=== PATIENT | female | born 1970 | race Asian ===

== ENCOUNTER 2016-12-01 15:21 | Emergency (ER) | payer OTHER ==
[~2016-12-01] VITALS: Ht 165.1 cm; Wt 111.8 kg
[~2016-12-01 15:21] MED LIST: ATEN25TA21 PO; CYCL10TA35 PO; UNITH DIRECT25 MCG OR; ZANTAC 75 PO; ZEBUTAL 50-325-1 CAP PO
[2016-12-01 18:10] VITALS: BP 127/93; TEMP 98.9
== END 2016-12-01 18:20 | disposition home or self-care (01) ==
LOC: ED 15:21
DX: S16.1XXA Strain of muscle, fascia and tendon at neck level, initial encounter (principal); S09.90XA Unspecified injury of head, initial encounter; S33.5XXA Sprain of ligaments of lumbar spine, initial encounter; S30.0XXA Contusion of lower back and pelvis, initial encounter; W01.0XXA Fall on same level from slipping, tripping and stumbling without subsequent striking against object, initial encounter; Y92.149 Unspecified place in prison as the place of occurrence of the external cause
CPT/HCPCS: 99283

== ENCOUNTER 2017-01-08 12:28 | Outpatient (CLI) | payer OTHER | END 2017-01-08 19:09 | disposition home or self-care (01) | LOC: CT 12:28 | DX: G44.309 Post-traumatic headache, unspecified, not intractable (principal) ==

== ENCOUNTER 2019-01-30 19:35 | Emergency (ER) | payer BC ==
[~2019-01-30] VITALS: Ht 165.1 cm; Wt 107.5 kg
[2019-01-30 21:45] LABS: PLATELET COUNT 233 K/uL (152-353)
[2019-01-30 23:23] VITALS: BP 104/55; TEMP 97.7
== END 2019-01-30 23:15 | disposition home or self-care (01) ==
LOC: ED 19:35
PROVIDERS: Family Medicine
DX: K52.9 Noninfective gastroenteritis and colitis, unspecified (principal); E87.6 Hypokalemia; E86.0 Dehydration
CPT/HCPCS: 36415; 80053; 81000; 85027; 96360; 96375; 99284; J2405; J2550; J3490

== ENCOUNTER 2019-03-21 15:56 | Outpatient (CLI) | payer BC | END 2019-03-21 19:44 | disposition home or self-care (01) | LOC: LAB 15:56 | DX: R53.83 Other fatigue (principal) | CPT/HCPCS: 84436; 84481; 86376 ==

== ENCOUNTER 2019-08-15 11:57 | Outpatient (CLI) | payer BC | END 2019-08-15 20:14 | disposition home or self-care (01) | LOC: RAD 11:57 | DX: M79.671 Pain in right foot (principal) ==

== ENCOUNTER 2019-12-21 17:43 | Emergency (ER) | payer BC ==
[~2019-12-21] VITALS: Ht 165.1 cm; Wt 107.5 kg
[2019-12-21 18:12] LABS: PLATELET COUNT 242 K/uL (152-353)
[2019-12-21 18:40] LABS: POTASSIUM 4.3 mmol/L (3.6-5.2); SODIUM 140 mmol/L (136-145)
[2019-12-21 20:10] VITALS: BP 120/83; TEMP 98
== END 2019-12-21 20:10 | disposition home or self-care (01) ==
LOC: ED 17:43
PROVIDERS: Emergency Medicine
DX: M25.512 Pain in left shoulder (principal); R07.89 Other chest pain
CPT/HCPCS: 80053; 82550; 82553; 84484; 85027; 93005; 99283

== ENCOUNTER 2020-05-11 11:31 | Outpatient (CLI) | payer BC | END 2020-05-11 18:57 | disposition home or self-care (01) | LOC: US 11:31 | DX: I83.892 Varicose veins of left lower extremity with other complications (principal) ==

== ENCOUNTER 2021-04-03 08:43 | Outpatient (CLI) | payer BC | END 2021-04-03 19:18 | disposition home or self-care (01) | LOC: US 08:43 | PROVIDERS: ATTEND Family Medicine | DX: R10.9 Unspecified abdominal pain (principal) ==

== ENCOUNTER 2021-04-05 11:55 | Outpatient (CLI) | payer BC ==
[2021-04-05 14:37] LABS: PLATELET COUNT 264 K/uL (152-353)
== END 2021-04-05 21:53 | disposition home or self-care (01) ==
LOC: LABW 11:55
PROVIDERS: ATTEND Nurse Practitioner Family
DX: R10.31 Right lower quadrant pain (principal)
CPT/HCPCS: 36415; 80053; 85027; Q9963

== ENCOUNTER 2021-04-18 11:52 | Outpatient (CLI) | payer BC | END 2021-04-18 22:26 | disposition home or self-care (01) | LOC: US 11:52 | PROVIDERS: ATTEND Nurse Practitioner Primary Care | DX: R10.31 Right lower quadrant pain (principal); M54.5 Low back pain ==

== ENCOUNTER 2021-09-14 10:31 | Outpatient (CLI) | payer BC | END 2021-09-14 18:59 | disposition home or self-care (01) | LOC: RAD 10:31 | PROVIDERS: ATTEND Family Medicine | DX: M54.51 Vertebrogenic low back pain (principal) ==

== ENCOUNTER 2022-03-19 10:56 | Outpatient (CLI) | payer OTHER | END 2022-03-19 19:17 | disposition home or self-care (01) | LOC: US 10:56 | PROVIDERS: ATTEND Nurse Practitioner Family | DX: E04.1 Nontoxic single thyroid nodule (principal); Z12.31 Encounter for screening mammogram for malignant neoplasm of breast ==

== ENCOUNTER 2022-07-29 19:22 | Emergency (ER) | payer OTHER ==
[~2022-07-29] VITALS: Ht 165.1 cm; Wt 117.9 kg
[2022-07-29 20:18] LABS: PLATELET COUNT 248 K/uL (152-353)
[2022-07-29 20:24] LABS: POTASSIUM 3.6 mmol/L (3.6-5.2)
[2022-07-29] MEDS ORDERED: ATEN25TA21 PO (20:51)
[2022-07-29 21:00] VITALS: BP 139/91; TEMP 98.7
== END 2022-07-29 21:00 | disposition home or self-care (01) ==
LOC: ED 19:22
PROVIDERS: Emergency Medicine
DX: B34.9 Viral infection, unspecified (principal); Z20.822 Contact with and (suspected) exposure to COVID-19; I10 Essential (primary) hypertension
CPT/HCPCS: 36415; 80048; 84484; 85027; 85379; 87635; 93005; 99284; U0003

== ENCOUNTER 2022-10-28 13:31 | Outpatient (CLI) | payer OTHER | END 2022-10-28 21:00 | disposition home or self-care (01) | LOC: RAD 13:31 | PROVIDERS: ATTEND Family Medicine | DX: M25.561 Pain in right knee (principal) ==

== ENCOUNTER 2023-01-25 01:30 | Emergency (ER) | payer OTHER ==
[~2023-01-25] VITALS: Ht 165.1 cm; Wt 117.9 kg
[2023-01-25 02:04] LABS: PLATELET COUNT 249 K/uL (152-353)
[2023-01-25 02:22] LABS: PARTIAL THROMBOPLASTIN TIME 26.5 SECONDS (24.5-33.6)
[2023-01-25 03:30] VITALS: BP 140/87; TEMP 98.6
== END 2023-01-25 03:30 | disposition home or self-care (01) ==
LOC: ED 01:30
PROVIDERS: Emergency Medicine
DX: M62.830 Muscle spasm of back (principal); R07.89 Other chest pain
CPT/HCPCS: 36415; 80053; 83880; 84484; 85027; 85379; 85610; 85730; 93005; 96374; 96375; 99284; J2270; J2405